=== PATIENT | male | born 1995 | race American Indian/Alaskan Native ===

== ENCOUNTER 2021-09-13 14:24 | Emergency (ER) | payer OTHER ==
[2021-09-13 14:40] VITALS: BP 143/94
[2021-09-13] MEDS ORDERED: IBUPROFEN 800 MG TAB PO ONE (14:52)
[2021-09-13] MEDS ORDERED: CYCLOBENZAPRINE 10 MG TAB PO ONE (14:52)
[2021-09-13] MEDS ORDERED: ACETAMINOPHEN 500 MG TAB PO ONE (15:24)
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
== END 2021-09-13 17:10 | disposition home or self-care (01) ==
LOC: ED 14:24
DX: S49.91XA Unspecified injury of right shoulder and upper arm, initial encounter (principal); S39.92XA Unspecified injury of lower back, initial encounter; V89.2XXA Person injured in unspecified motor-vehicle accident, traffic, initial encounter; Y93.89 Activity, other specified; Y92.89 Other specified places as the place of occurrence of the external cause; Y99.8 Other external cause status
CPT/HCPCS: 72070; 72100; 99283